=== PATIENT | female | born 1975 | race Two or more races ===

== ENCOUNTER → 2018-05-10 | Outpatient (CLI) | payer BC, OTHER ==
[~2018-05-10] MED LIST: No meds per pt.
[2018-05-10 10:34] LABS: BASOPHILS # (AUTO) 0.06 x10^3/uL (0-0.1); BASOPHILS % (AUTO) 1 % (0-1); EOSINOPHILS # (AUTO) 0.18 x10^3/uL (0-0.4); EOSINOPHILS % (AUTO) 2 % (1-7); LYMPHOCYTES # (AUTO) 2.38 x10^3/uL (1-3.4); LYMPHOCYTES % (AUTO) 31 % (22-44); MD NO; MEAN CORPUSCULAR HEMOGLOBIN 27.9 pg (27.0-34.8); MEAN CORPUSCULAR HGB CONC 32.5 g/dL (32.4-35.8); MEAN CORPUSCULAR VOLUME 85.8 fL (80-100); MEAN PLATELET VOLUME 7.9 fL (7.4-10.4); MONOCYTES # (AUTO) 0.43 x10^3/uL (0.2-0.8); MONOCYTES % (AUTO) 6 % (2-9); NEUTROPHILS # (AUTO) 4.72 x10^3/uL (1.8-6.8); NEUTROPHILS % (AUTO) 61 % (42-75); PLATELET COUNT 319 x10^3/uL (130-400); RED BLOOD COUNT 4.65 x10^6/uL (3.82-5.3); RED CELL DISTRIBUTION WIDTH 14.1 % (9.6-15.2)
== END | disposition home or self-care (01) ==
LOC: STAR 09:42
PROVIDERS: ATTEND Obstetrics & Gynecology Female Pelvic Medicine and Reconstructive Surgery
DX: N92.0 Excessive and frequent menstruation with regular cycle (principal)
CPT/HCPCS: 36415; 84703; 85025

== ENCOUNTER 2018-05-14 12:06 | Day surgery (SDC) | payer BC, OTHER ==
[~2018-05-14] VITALS: Ht 160 cm; Wt 94.1 kg
[~2018-05-14 12:06] MED LIST changes: +FENTANYL PF 100 MCG/2ML IV PRN; +HALOPERIDOL 5 MG/ML IV PRN; +LABETALOL 5 MG/ML SYRINGE IV PRN; +MEPERIDINE/PF 25MG/0.5ML IVPush PRN; +METOPROLOL 1 MG/ML, 5ML IV PRN; +OXYcodone 5 MG/5 ML ORAL.SOL UDC PO PRN; +PROCHLORPERAZINE 5 MG/ML, 2ML IV PRN; +PROMETHAZINE 25 MG/ML, 1ML IV PRN; +hydrALAzine 20 MG/ML, 1ML IV PRN
[2018-05-14] MEDS ORDERED: GABAPENTIN 300 MG CAPSULE PO ONE ×2 (12:30)
[2018-05-14] MEDS ORDERED: ACETAMINOPHEN 500 MG TABLET PO ONE (12:30)
[2018-05-14] MEDS ORDERED: SCOPOLAMINE PATCH, 1.5MG PATCH.TD72 TD ONE (12:30)
[2018-05-14 12:46] VITALS: BP 119/86
[2018-05-14] MEDS ORDERED: MIDAZOLAM 1 MG/ML, 2ML ONE (14:14)
[2018-05-14] MEDS ORDERED: FENTANYL PF 100 MCG/2ML ONE ×2 (14:14→15:39)
[2018-05-14] MEDS ORDERED: EPINEPHRINE 1 MG/ML, 1ML ONE (14:55)
[2018-05-14] MEDS ORDERED: BUPIVACAINE/PF 0.25% ONE (14:55)
[2018-05-14] MEDS ORDERED: SILVER NITRATE STICK TP ONE (15:57)
[2018-05-14] MEDS ORDERED: NEOSTIGMINE 1 MG/ML, 10ML ONE (16:01)
[2018-05-14] MEDS ORDERED: GLYCOPYRROLATE 0.2MG/1ML, 5ML ONE (16:01)
[2018-05-14] MEDS ORDERED: CEFAZOLIN 1,000 MG ONE (16:01)
[2018-05-14] MEDS ORDERED: ROCURONIUM 10MG/ML,5ML ONE (16:01)
[2018-05-14] MEDS ORDERED: SUCCINYLCHOLINE 20 MG/ML, 10ML ONE (16:01)
[2018-05-14] MEDS ORDERED: ONDANSETRON 2MG/ML, 2ML ONE (16:01)
[2018-05-14] MEDS ORDERED: PROPOFOL 10 MG/ML, 20ML ONE (16:01)
[2018-05-14] MEDS ORDERED: HYDROmorphone 1 MG/ML, 1ML AMP ONE (16:25)
[2018-05-14] MEDS: HYDROmorphone 2 MG/ML, 1ML IVPush PRN ×2 (16:28→16:50)
[2018-05-14] MEDS ORDERED: ALBUTEROL/IPRATROPIUM 2.5MG/0.5MG, 3 ML ONE (17:09)
[2018-05-14] MEDS ORDERED: ALBUTEROL/IPRATROPIUM 2.5MG/0.5MG, 3 ML NPPB PRN (17:30)
== END 2018-05-14 18:30 | disposition home or self-care (01) ==
LOC: OUT 12:06
PROVIDERS: ATTEND Obstetrics & Gynecology Female Pelvic Medicine and Reconstructive Surgery
DX: Z30.2 Encounter for sterilization (principal); N92.0 Excessive and frequent menstruation with regular cycle; N80.9 Endometriosis, unspecified; N94.6 Dysmenorrhea, unspecified; D64.9 Anemia, unspecified; G43.909 Migraine, unspecified, not intractable, without status migrainosus; J45.909 Unspecified asthma, uncomplicated
CPT/HCPCS: 58563; 58670; 94640; J0171; J0330; J0690; J1170; J2250; J2405; J2550; J2704; J2710; J3010; J3490; J7620